=== PATIENT | female | born 1950 | race Hispanic/Latino ===

== ENCOUNTER 2024-04-02 10:51 | Emergency (ER) | payer OTHER, SELFPAY ==
[2024-04-02 11:02] VITALS: BP 125/57
--- NOTE | 2024-04-02 11:38 | ED.GENMED ---
History of Present Illness
General
Chief Complaint: Headache
Source: patient
Exam Limitations: none
Time Seen by Provider: 04/02/24 11:35
History of Present Illness
History of Present Illness:
See MDM
Past History
Past History
ED Past Medical History: CVA and HTN
ED Past Surgical History: Tonsilectomy
Social History
Tobacco: Non-smoker
Alcohol: None
Phy Exam
Physical Exam
Physical Exam:
See MDM
Course
Orders/Labs/Results
Orders:
Orders
04/02/24 11:48
CT Head W/o Iv Contrast Urgent
Comment:
Reason For Exam: left side headache
Ketorolac [Toradol] 30 mg IV NOW STA
04/02/24 13:01
Complete Blood Count/With Diff Urgent
Comprehensive Metabolic Panel Urgent
04/02/24 13:39
Carbamazepine [Tegretol] 200 mg PO ONCE ONE
Abnormal Lab Results
04/02/24
13:01
RBC 3.98 L 10^6/uL
(4.20-5.40)
Hct 36.2 L %
(37.0-47.0)
Absolute Neuts (auto) 7.7 H 10^3/uL
(1.4-6.5)
Absolute Monos (auto) 0.9 H 10^3/uL
(0.1-0.6)
Neutrophils % 76.3 H %
(42.2-75.2)
Lymphocytes % 12.6 L %
(20.5-51.1)
BUN 21 H mg/dl
(7-17)
Glucose 105 H mg/dl
(70-99)
04/02/24 13:01
04/02/24 13:01
Vital Signs
Initial and Last Documented VS:
Initial Vital Signs
Temp Pulse Resp BP Pulse Ox
98 F 87 16 125/57 98
04/02/24 11:02 04/02/24 11:02 04/02/24 11:02 04/02/24 11:02 04/02/24 11:02
Last Documented Vital Signs
Temp Pulse Resp BP Pulse Ox
98 F 87 16 125/57 98
04/02/24 11:02 04/02/24 11:02 04/02/24 12:00 04/02/24 11:02 04/02/24 11:02
MDM/Problems Addressed
Differential Diagnosis Includes:
HPI and MDM Narrative:
73-year-old female presenting with headache and weakness. It appears that headache has been ongoing for the past few days. It was gradual onset. The weakness is more consistent with generalized fatigue. She has no unilateral weakness. She took
Tylenol with minimal relief and they started to get worried because she has a prior history of stroke without residual deficits.
On exam, she complains of left-sided headache. There is no tenderness to palpation of temporal artery. Pupils equal reactive. She denies visual complaints. Will obtain basic blood work and obtain CT head and provide IV Toradol for headache relief
Physical exam
General: Well appearing and non-toxic
HEENT: protecting airway. Pupils equal reactive. No temporal artery tenderness
Neck: appears supple
CV: No evidence of cyanosis. Regular rate and rhythm
Resp: No accessory muscle use
Abd: Non-distended
Extremities: No deformities
Neuro: alert. No focal deficits
Psych: Normal affect
Skin: Intact
Problems Addressed including Acute and Chronic Conditions affecting care:
1. Headache
Acuity: acute
Prognosis: stable
Details: Given her prior history, will obtain CT head
Updates
CT head negative and blood work without clinical significance. Upon further questioning, patient describes what appears to be trigeminal neuralgia. Will give trial of carbamazepine but discussed follow-up with PCP
Differential Diagnosis (but not limited to): Migraine, tension headache, hemorrhagic stroke
Testing considered: CTA head and neck but there is no focal deficits
Drug therapy (if applicable): OTC meds, please see d/c instruction regarding Rx drugs
Amount and/or Complexity of Data Reviewed
Clinical info obtained from: Patient
External data reviewed: N/A
Labs I independently reviewed (but not limited to): White blood cell count
Radiology: The CT scan was personally and independently reviewed. In addition, official CT report reviewed.
Pulse Ox: not hypoxic
EKG independently reviewed: N/A
Loss Prevention Detective: N/A
Critical Care: N/A
Risk of Complication:
Social Determinants of health: Good social support
Discussed with other providers: N/A
Escalation of Care includes Admit/Obs: After being observed in the Emergency Department, pt stable for discharge.
Occasional wrong word or 'sound a like' substitutions may have occurred due to the inherent limitations of voice recognition software. Read the chart carefully and recognize, using context, where substitutions have occurred.
*Critical Care Note
Total Time (30-74mins, 75-104mins- exclusive of procedures): Not Applicable
ED Attending Note
-
Portions of this chart may have been created with voice recognition software.� Occasional wrong word or��sound alike� substitutions may have occurred due to the inherent limitations of voice recognition software.
Discharge Plan
Departure
Patient Disposition: Home (Routine Discharge)
Date of Disposition: 04/02/24
Time of Disposition: 13:41
Patient with high blood pressure during this ER visit?: No
Discharge Problem:
Trigeminal neuralgia of left side of face
Instructions: Trigeminal neuralgia
Prescriptions:
New
carbamazepine 200 mg tablet
200 mg PO BID Qty: 14 0RF
Referrals:
Mare Lai NP [Family Provider] -
Activity Restrictions/Additional Instructions:
Please return for any worsening symptoms.
You may return at any time if you have further concerns.
Please follow up with your doctor at the first available appointment, preferably this week. If the medication is helping, your primary care doctor may continue it.
Thank you for choosing [facility].
Interventions
Interventions:
*Risk Screen - Suicide Last Done: 04/02/24 11:05
*General Assessment Last Done: 04/02/24 12:19
*Neglect/Abuse Screening Last Done: 04/02/24 11:05
ED- Fall Risk Assessment Last Done: 04/02/24 12:19
ED- Neurological Assessment Last Done: 04/02/24 12:19
Discharge Date and Time
Print Language: ROMANSH
[2024-04-02] MEDS: TORADOL 30 MG IV (13:01)
[2024-04-02 13:13] LABS: % Basophils 0.4 % (0-2); % Eosinophils 1.5 % (0-6); % Immature Granulocytes 0.4 % (0-0.5); % Lymphocytes 12.6 % (20.5-51.1); % Monocytes 8.8 % (1.7-9.3); % Neutrophils 76.3 % (42.2-75.2); Absolute Eosinophils 0.2 10^3/uL (0-0.7); Absolute Lymphocytes 1.3 10^3/uL (1.2-3.4); Absolute Monocytes 0.9 10^3/uL (0.1-0.6); Absolute Neutrophils 7.7 10^3/uL (1.4-6.5); Hematocrit 36.2 % (37.0-47.0); Hemoglobin 12.1 g/dL (12.0-16.0); Mean Corp Hgb Conc. 33.4 g/dL (33.0-37.0); Mean Corpuscular Hgb 30.4 pg (27.0-31.0); Mean Platelet Volume 10.4 fL (7.4-10.4); Nucleated Red Blood Cells % 0 %; Platelet Count 269 10^3/uL (130-400); Red Blood Cell Count 3.98 10^6/uL (4.20-5.40); Red Cell Dist. Width 12.3 % (11.5-14.5)
[2024-04-02 13:31] LABS: ALT (SGPT) 17 U/L (0-35); AST (SGOT) 26 U/L (14-36); Albumin 4.2 g/dl (3.5-5.0); Alkaline Phosphatase 73 U/L (38-126); Blood Urea Nitrogen 21 mg/dl (7-17); Calcium 9.6 mg/dl (8.4-10.2); Carbon Dioxide 30 mmol/L (22-30); Chloride 103 mmol/L (98-107); Glucose 105 mg/dl (70-99); Potassium 4.8 mmol/L (3.5-5.1); Sodium 140 mmol/L (135-145); Total Bilirubin 0.5 mg/dl (0.2-1.3); Total Protein 7.3 g/dl (6.3-8.2); eGFR > 60.00
[2024-04-02] MEDS: TEGRETOL 200 MG PO (13:48)
[2024-04-02 13:54] VITALS: BP 143/76
== END 2024-04-02 14:01 | disposition home or self-care (01) ==
LOC: EMR 10:51
PROVIDERS: EMERGENCY PHYSICIAN Student in an Organized Health Care Education/Training Program; FAMILY PHYSICIAN Nurse Practitioner Family
DX: G50.0 Trigeminal neuralgia (principal); I10 Essential (primary) hypertension; Z86.73 Personal history of transient ischemic attack (TIA), and cerebral infarction without residual deficits
CPT/HCPCS: 99284; 96374; 70450; 80053; 85025

== ENCOUNTER → 2025-02-25 11:11 | Outpatient (REF) | payer OTHER, MEDICARE, SELFPAY | LOC: RAD 11:11 | PROVIDERS: ATTENDING PHYSICIAN Student in an Organized Health Care Education/Training Program | DX: G89.29 Other chronic pain (principal); M54.41 Lumbago with sciatica, right side; M25.561 Pain in right knee; M25.562 Pain in left knee | CPT/HCPCS: 72110; 73502; 73560 ==